=== PATIENT | male | born 1990 | race Caucasian/White ===

== ENCOUNTER 2017-07-30 16:11 | Emergency (ER) | payer SELFPAY ==
[2017-07-30 16:42] VITALS: BP 152/85
[2017-07-30] MEDS ORDERED: Tetan/Diph/Pertus SYR(Tdap)* 0.5 ML SYR(BOOSTRIX) use SYR IM ONE (16:49)
--- NOTE | 2017-07-30 16:49 | UC ---
Lower Extremity/Ankle HPI - HPI Summary HPI Summary: SM. LAC LEFT INDEX FINGER FROM [facility] LAST NIGHT. PT WOKE THIS MORNING WITH AREA SWOLLEN, PAINFUL AND RED. HX OF MRSA. LAST TETANUS 2010 OR 2012. [ End ] - History of Current Complaint Chief Complaint: UCSkin Stated Complaint: LEFT INDEX FINGER INJURY WC Time Seen by Provider: 07/30/17 16:43 Hx Obtained From: Patient Onset/Duration: Sudden Onset Severity Initially: Mild Severity Currently: Moderate - Allergies/Home Medications Allergies/Adverse Reactions: Allergies Allergy/AdvReac Type Severity Reaction Status Date / Time No Known Allergies Allergy Verified 07/30/17 16:42 Home Medications: Home Medications Ibuprofen TAB* [Advil TAB*] 600 mg PO Q6H PRN 07/30/17 [History Confirmed ] Loratadine [Claritin 10 MG CAP] 10 mg PO DAILY PRN 07/30/17 [History Confirmed 07/30/17] PMH/Surg Hx/FS Hx/Imm Hx Previously Healthy: Yes - Surgical History Surgical History: Yes Surgery Procedure, Year, and Place: RIGHT HAND-BONE INFECTION. APPY. T&A - Social History Occupation: Employed Full-time Lives: With Family Alcohol Use: Weekly Substance Use Type: None Smoking Status (MU): Former Smoker When Did the Patient Quit Smoking/Using Tobacco: 6 MOS. Review of Systems Skin: Other - redness left index finger Motor: Decreased ROM - left index finger Musculoskeletal: Arthralgia Is Patient Immunocompromised?: No All Other Systems Reviewed And Are Negative: Yes Physical Exam Triage Information Reviewed: Yes Appearance: Well-Appearing, No Pain Distress, Well-Nourished Vital Signs: Initial Vital Signs Temp 97.6 F 07/30/17 16:34 Pulse 78 07/30/17 16:34 Resp 12 07/30/17 16:34 BP 152/85 07/30/17 16:34 Pulse Ox 99 07/30/17 16:34 Vital Signs Reviewed: Yes Eye Exam: Normal ENT Exam: Normal Neck exam: Normal Neck: Positive: 1 Respiratory Exam: Normal Cardiovascular Exam: Normal Musculoskeletal Exam: Normal Neurological Exam: Normal Psychological Exam: Normal Skin Exam: Normal Skin: Positive: Other - left index finger proximal MCP with redness and tender to palpation , cap refill < 3 sec. mild swelling present , center with 2mm linear superficial laceration and no bleeding. no discharge. Lower Extremity Course/Dx - Course Course Of Treatment: Update tetanus at this time. If redness spreads he is to go to ED. 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 no septic joint concerns at all at this time. rest of hand exam / wrist exam WNL - Differential Dx/Diagnosis Provider Diagnoses: laceration / cellulitis left finger Discharge - Discharge Plan Condition: Good Disposition: HOME Prescriptions: Doxycycline Hyclate [Morgidox [id number]] 100 mg PO BID #20 cap Patient Education Materials: Cellulitis (ED), Finger Laceration (ED) Referrals: Beth Lee MD [Medical Doctor] - 5 Days
== END 2017-07-30 17:03 | disposition home or self-care (01) ==
LOC: UCCORT 16:11
DX: S61.211A Laceration without foreign body of left index finger without damage to nail, initial encounter (principal); L03.012 Cellulitis of left finger; W26.8XXA Contact with other sharp object(s), not elsewhere classified, initial encounter; Z87.891 Personal history of nicotine dependence; Z86.14 Personal history of Methicillin resistant Staphylococcus aureus infection
CPT/HCPCS: 90471; 90715; 99201; G0463

== ENCOUNTER 2019-06-26 07:06 | Emergency (ER) | payer BC ==
[2019-06-26 07:21] VITALS: BP 146/74
--- NOTE | 2019-06-26 08:07 | UC ---
Respiratory Complaint HPI - HPI Summary HPI Summary: 29 year old male presents with a 1 day history of upper respiratory complaints. He denies fever, chills nor night sweats. Notes nasal congestion, sore throat and body aches. No cough nor chest pain. - History of Current Complaint Chief Complaint: UCGeneralIllness Stated Complaint: ST,BODY ACHES,RUNNY NOSE Time Seen by Provider: 06/26/19 07:48 Hx Obtained From: Patient Onset/Duration: Sudden Onset, Lasting Hours - within the past day. Pain Intensity: 4 Associated Signs And Symptoms: Positive: Negative - Risk Factors Pulmonary Embolism Risk Factors: Negative Cardiac Risk Factors: Negative Pseudomonas Risk Factors: Negative Tuberculosis Risk Factors: Negative - Allergies/Home Medications Allergies/Adverse Reactions: Allergies Allergy/AdvReac Type Severity Reaction Status Date / Time No Known Allergies Allergy Verified 06/26/19 07:16 Home Medications: Home Medications Dm/Acetaminophen/Doxylamine [Nighttime Cold-Flu Rlf Sftgl] 1 each PO ONCE PRN [History Confirmed 06/26/19] levETIRAcetam TAB* [Keppra TAB*] 1,000 mg PO DAILY 06/26/19 [History Confirmed 06/26/19] PMH/Surg Hx/FS Hx/Imm Hx Previously Healthy: Yes Neurological History: Seizures Other Neurological History: 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 APPY. T&A. skull flap surgery. brain tumor removed - Family History Known Family History: Positive: Non-Contributory - Social History Alcohol Use: None Substance Use Type: None Smoking Status (MU): Current Some Day Smoker Type: Cigars When Did the Patient Quit Smoking/Using Tobacco: 6 MOS. Review of Systems All Other Systems Reviewed And Are Negative: Yes Constitutional: Positive: Other - body aches Skin: Negative: Rash Eyes: Negative: Blurred Vision, Drainage, Eye Redness ENT: Positive: Sore Throat, Nasal Discharge. Negative: Sinus Pain/Tenderness Respiratory: Negative: Shortness Of Breath Cardiovascular: Negative: Palpitations Gastrointestinal: Negative: Abdominal Pain, Vomiting, Diarrhea, Nausea Genitourinary: Negative: Dysuria Motor: Negative: Decreased ROM, Weakness Neurovascular: Negative: Decreased Sensation Musculoskeletal: Positive: Myalgia Neurological: Positive: Negative Psychological: Positive: Negative Is Patient Immunocompromised?: No Physical Exam Triage Information Reviewed: Yes Appearance: Well-Appearing, No Pain Distress Vital Signs: Initial Vital Signs Temp 98.1 F 06/26/19 07:14 Pulse 78 06/26/19 07:14 Resp 16 06/26/19 07:14 BP 146/74 06/26/19 07:14 Pulse Ox 98 06/26/19 07:14 Vital Signs Reviewed: Yes Eyes: Positive: Conjunctiva Clear ENT: Positive: Normal ENT inspection Neck: Positive: Supple, Nontender, No Lymphadenopathy Respiratory: Positive: Lungs clear Cardiovascular: Positive: RRR, No Murmur Abdomen Description: Positive: Nontender, Soft Musculoskeletal: Positive: Strength Intact, ROM Intact Skin: Negative: Rashes Respiratory Course/Dx - Differential Dx/Diagnosis Provider Diagnosis: Upper respiratory infection Discharge - Sign-Out/Discharge Documenting (check all that apply): Patient Departure All imaging exams completed and their final reports reviewed: No Studies - Discharge Plan Condition: Stable Disposition: HOME Patient Education Materials: Cold Symptoms (ED) Referrals: Leslie Castrejon MD [Primary Care Provider] - Additional Instructions: Drink plenty of fluids and rest. Tylenol as needed for aches/pain. Follow-up if symptoms worsen over the next week. - Billing Disposition and Condition Condition: STABLE Disposition: Home
== END 2019-06-26 08:35 | disposition home or self-care (01) ==
LOC: UCCORT 07:06
DX: J06.9 Acute upper respiratory infection, unspecified (principal); F17.290 Nicotine dependence, other tobacco product, uncomplicated; R56.9 Unspecified convulsions; Z86.011 Personal history of benign neoplasm of the brain
CPT/HCPCS: 87651; 99211; G0463